=== PATIENT | male | born 1940 | race Caucasian/White ===

== ENCOUNTER → 2017-04-19 | Outpatient (CLI) | payer MEDICARE | END | disposition home or self-care (01) | LOC: PCVCCLINIC 16:10 | PROVIDERS: ATTEND Internal Medicine Cardiovascular Disease | DX: I25.10 Atherosclerotic heart disease of native coronary artery without angina pectoris (principal); I10 Essential (primary) hypertension; I25.5 Ischemic cardiomyopathy; I25.2 Old myocardial infarction; Z95.810 Presence of automatic (implantable) cardiac defibrillator; Z87.891 Personal history of nicotine dependence; Z79.82 Long term (current) use of aspirin | CPT/HCPCS: 80061; 93005; 93284; G0463 ==

== ENCOUNTER → 2017-10-23 | Outpatient (CLI) | payer MEDICARE | END | disposition home or self-care (01) | LOC: PCVCCLINIC 13:52 | DX: I25.10 Atherosclerotic heart disease of native coronary artery without angina pectoris (principal); E78.00 Pure hypercholesterolemia, unspecified; I25.5 Ischemic cardiomyopathy; I10 Essential (primary) hypertension; I77.9 Disorder of arteries and arterioles, unspecified; R07.89 Other chest pain; Z95.810 Presence of automatic (implantable) cardiac defibrillator; Z87.891 Personal history of nicotine dependence; Z79.899 Other long term (current) drug therapy; Z79.82 Long term (current) use of aspirin | CPT/HCPCS: 93005; 93283; G0463 ==

== ENCOUNTER → 2017-10-30 | Outpatient (CLI) | payer MEDICARE ==
[~2017-10-30] MED LIST: REGADENOSON 0.4 MG/5 ML DISP.SYRIN. IV
== END | disposition home or self-care (01) ==
LOC: PCVCIMAG 09:54
DX: I25.10 Atherosclerotic heart disease of native coronary artery without angina pectoris (principal); R07.9 Chest pain, unspecified; I10 Essential (primary) hypertension; I42.9 Cardiomyopathy, unspecified; E78.5 Hyperlipidemia, unspecified; Z72.0 Tobacco use
CPT/HCPCS: 78452; 93017; A9500; J2785

== ENCOUNTER → 2018-08-13 | Outpatient (CLI) | payer MEDICARE | END | disposition home or self-care (01) | LOC: PCVCCLINIC 11:56 | PROVIDERS: ATTEND Internal Medicine Cardiovascular Disease | DX: I25.10 Atherosclerotic heart disease of native coronary artery without angina pectoris (principal); I25.5 Ischemic cardiomyopathy; E78.00 Pure hypercholesterolemia, unspecified; I10 Essential (primary) hypertension; Z95.810 Presence of automatic (implantable) cardiac defibrillator; Z79.82 Long term (current) use of aspirin; Z87.891 Personal history of nicotine dependence | CPT/HCPCS: 80061; 93282; G0463 ==

== ENCOUNTER → 2018-12-05 | Outpatient (CLI) | payer MEDICARE | END | disposition home or self-care (01) | LOC: PCVCCLINIC 14:36 | PROVIDERS: ATTEND Internal Medicine Cardiovascular Disease | DX: Z48.812 Encounter for surgical aftercare following surgery on the circulatory system (principal); I47.2 Ventricular tachycardia; Z95.810 Presence of automatic (implantable) cardiac defibrillator | CPT/HCPCS: 93283 ==

== ENCOUNTER → 2019-04-15 | Outpatient (CLI) | payer MEDICARE | END | disposition home or self-care (01) | LOC: PCVCCLINIC 15:25 | PROVIDERS: ATTEND Internal Medicine Cardiovascular Disease | DX: I25.10 Atherosclerotic heart disease of native coronary artery without angina pectoris (principal); I25.5 Ischemic cardiomyopathy; I10 Essential (primary) hypertension; I47.2 Ventricular tachycardia; E78.00 Pure hypercholesterolemia, unspecified; Z95.810 Presence of automatic (implantable) cardiac defibrillator; Z87.891 Personal history of nicotine dependence; Z72.89 Other problems related to lifestyle; Z79.82 Long term (current) use of aspirin; Z79.899 Other long term (current) drug therapy | CPT/HCPCS: 36415; 80061; 93283; G0463 ==

== ENCOUNTER → 2019-08-05 | Outpatient (CLI) | payer MEDICARE | END | disposition home or self-care (01) | LOC: PCVCCLINIC 13:00 | PROVIDERS: ATTEND Internal Medicine Cardiovascular Disease | DX: Z48.812 Encounter for surgical aftercare following surgery on the circulatory system (principal); I47.2 Ventricular tachycardia; I10 Essential (primary) hypertension; I25.10 Atherosclerotic heart disease of native coronary artery without angina pectoris; E78.00 Pure hypercholesterolemia, unspecified; I25.2 Old myocardial infarction; Z95.810 Presence of automatic (implantable) cardiac defibrillator; Z87.891 Personal history of nicotine dependence; Z80.0 Family history of malignant neoplasm of digestive organs | CPT/HCPCS: 93283 ==